=== PATIENT | male | born 1965 | race Asian ===

== ENCOUNTER 2017-03-28 08:14 | Emergency (ER) | payer OTHER ==
[2017-03-28 08:30] VITALS: BP 129/74; PULSE 88; TEMP 98.2; BMI 20.6
--- NOTE | 2017-03-28 08:35 | PDOC ---
History of Present Illness - General Chief Complaint: Wound Infection Stated Complaint: INFECTED HAIR FOCCICLE TO CHIN Time Seen by Provider: 03/28/17 08:35 History Source: Patient Exam Limitations: No Limitations - History of Present Illness Initial Comments: 03/28/17 09:11 Pt presents to the ED complaining of infected hair follicle in his chin. Patient was seen by his PMD two days ago for the same complaint, and started on doxycyline yesterday. He presents to the ED today because the infected follicle is still there and he has not noticed improvement. patient is concerned that the area may need to be drained. Denies fevers, nausea or vomiting, worsening pain or swelling. Patient admits that he has been "picking at " the affected area. History of folliculitis in the past. No history of immunocompromise. Past History - Past Medical History Allergies/Adverse Reactions: Allergies Allergy/AdvReac Type Severity Reaction Status Date / Time No Known Allergies Allergy Unverified 03/28/17 08:20 Home Medications: Ambulatory Orders Atorvastatin Ca [Lipitor] 10 mg PO HS 03/28/17 Doxycycline Hyclate 100 mg PO BID 03/28/17 Hypercholesterolemia: Yes - Psycho/Social/Smoking Cessation Hx Anxiety: No Suicidal Ideation: No Smoking History: Former smoker Have you smoked in the past 12 months: No If you are a former smoker, when did you quit?: 7 YEARS Information on smoking cessation initiated: No Hx Alcohol Use: No Drug/Substance Use Hx: No Substance Use Type: None Review of Systems - Review of Systems Constitutional: No: Symptoms Reported, See HPI, Chills, Diaphoresis, Fever, Loss of Appetite, Malaise, Night Sweats, Weakness, Weight Stable, Unintentional Wgt. Loss, Unexplained wgt Loss, Other Integumentary: Yes: Lumps (small infected follicle to chin). No: Symptoms Reported, See HPI, Bruising, Change in Color, Change in Hair/Nails, Dryness, Erythema, Flushing, Lesions, Pallor, Pruritus, Rash, Sweating, Other All Other Systems: Reviewed and Negative *Physical Exam - Vital Signs Last Vital Signs Temp Pulse Resp BP Pulse Ox 98.2 F 88 16 129/74 98 03/28/17 08:16 03/28/17 08:16 03/28/17 08:16 03/28/17 08:16 03/28/17 08:16 - Physical Exam Integumentary: positive: Rash (2-3 mm infected follicle to chin. No surrounding erythema. No fluctuance) Medical Decision Making - Medical Decision Making 03/28/17 09:15 Pt presents to the ED complaining of folliculitis not improved after one day of doxycycline. No other symptoms. No signs of fluctuance on exam. Patient advised to continue antibiotics and warm compressess and to return for fever or worsening symptoms. *DC/Admit/Observation/Transfer Diagnosis at time of Disposition: Folliculitis - Discharge Dispostion Disposition: HOME Condition at time of disposition: Good Admit: No - Patient Instructions Printed Discharge Instructions: DI for Wound Infection Additional Instructions: use warm compresses to the affected area. Continue to take the antibotics. Return to the ED for fever, lump that is becoming bigger or more painful, redness that spreads away from the original area, new or worsening symptoms.
== END 2017-03-28 08:52 | disposition home or self-care (01) ==
LOC: FER 08:14
DX: L73.9 Follicular disorder, unspecified (principal); Z87.891 Personal history of nicotine dependence
CPT/HCPCS: 99281-25